=== PATIENT | female | born 1955 | race African-American/Black ===

== ENCOUNTER 2018-08-28 18:10 | Inpatient (IN) | payer MEDICARE, MEDICAID ==
[~2018-08-28] VITALS: Ht 170.2 cm; Wt 92.8 kg
[~2018-08-28 18:10] MED LIST: CARV25TA47 PO; CLON0.1T PO; FURO80TA3 PO; HYDR-4135 PO; IBUP-2029 PO; ISOS30TA6 PO; LORA-250 PO; PARO30TA62 PO
[2018-08-28 18:24] VITALS: BP 132/80
[2018-08-28 20:00] VITALS: BP 135/67
[2018-08-28] MEDS ORDERED: IPRATROPIUM/ALBUTEROL 0.5-3(2.5)MG/3ML NEB HHN NR (21:14)
[2018-08-28] MEDS ORDERED: LORAZEPAM 1MG TABLET PO PRN (21:15)
[2018-08-28] MEDS: CARVEDILOL 25MG TABLET PO SCH (21:58)
[2018-08-28] MEDS: CLONIDINE 0.1MG TABLET PO SCH (21:58)
[2018-08-28] MEDS: HYDROCODONE/ACETAMINOPHEN 10/325MG TABLET PO PRN (21:59)
[2018-08-28 22:00] VITALS: BP 138/99
[2018-08-29] VITALS (7 sets, daily range): BP systolic 103–138; BP diastolic 61–73
[2018-08-29] MEDS: IPRATROPIUM/ALBUTEROL 0.5-3(2.5)MG/3ML NEB HHN SCH ×5 (00:40→20:35)
[2018-08-29] MEDS ORDERED: HEPARIN 1,000 UNITS PREMIX 1,500 ML IV ONE (08:40)
[2018-08-29] MEDS: HYDRALAZINE HCL 50MG TABLET PO SCH ×2 (09:00→21:31)
[2018-08-29] MEDS: PAROXETINE HCL 10MG TABLET PO SCH (09:00)
[2018-08-29] MEDS: FUROSEMIDE 40MG TABLET PO SCH (09:00)
[2018-08-29] MEDS: ISOSORBIDE MONONITRATE 30MG TABLET SR 24HR PO SCH (09:00)
[2018-08-29] MEDS: CARVEDILOL 25MG TABLET PO SCH ×2 (09:00→21:31)
[2018-08-29] MEDS: CLONIDINE 0.1MG TABLET PO SCH ×3 (09:00→17:00)
[2018-08-29] MEDS ORDERED: ROCURONIUM BROMIDE 10MG/ML VIAL 5ML IV ONE ×2 (09:33→10:12)
[2018-08-29] MEDS ORDERED: PROPOFOL 200MG/20ML VIAL IV ONE (09:33)
[2018-08-29] MEDS ORDERED: FENTANYL CITRATE/PF 50MCG/ML 2ML VIAL ONE (09:33)
[2018-08-29] MEDS ORDERED: NEOSTIGMINE METHYLSULFATE 1MG/ML 10 ML VIAL ONE (09:33)
[2018-08-29] MEDS ORDERED: GLYCOPYRROLATE 0.2 MG/ML 2ML VIAL ONE (09:34)
[2018-08-29] MEDS ORDERED: MIDAZOLAM HCL 2 MG/2 ML VIAL ONE (09:34)
[2018-08-29] MEDS ORDERED: LIDOCAINE HCL/PF 1% 10 MG/ML 5ML VIAL ONE (09:37)
[2018-08-29] MEDS ORDERED: CEFAZOLIN SODIUM 1000MG/VIAL ONE (09:37)
[2018-08-29] MEDS ORDERED: ONDANSETRON HCL 4MG/2ML INJ ONE (09:37)
[2018-08-29] MEDS ORDERED: EPHEDRINE SULFATE 50MG/ML VIAL ONE (09:37)
[2018-08-29] MEDS ORDERED: SUCCINYLCHOLINE CHLORIDE 200MG/10ML IV ONE (09:37)
[2018-08-29] MEDS ORDERED: PHENYLEPHRINE HCL 10 MG/ML 1ML (IV VIAL) IV ONE (09:37)
[2018-08-29] MEDS ORDERED: METOCLOPRAMIDE HCL 10MG/2ML VIAL ONE (09:37)
[2018-08-29] MEDS ORDERED: SODIUM CHLORIDE 0.9% 10ML VIAL ONE (09:37)
[2018-08-29] MEDS ORDERED: METOPROLOL TARTRATE 5MG/5ML VIAL IV ONE (09:42)
[2018-08-29] MEDS ORDERED: LIDOCAINE HCL 1% 20ML VIAL (Pyxis) INJ ONE (09:47)
[2018-08-29 11:03] LABS: INR 1.1; PROTHROMBIN TIME 11.4 sec (9.1-11.1)
[2018-08-29 11:19] LABS: BASOPHILS % 0.3 % (0.0-2.0); EOSINOPHILS % 7.5 % (0.0-5.0); HEMATOCRIT. 27.3 % (36.0-48.0); HEMOGLOBIN. 8.4 g/dL (12.0-16.0); LYMPHOCYTES % 20.4 % (20.0-50.0); MEAN CORPUSCULAR HEMOGLOBIN 26.7 pg (28.0-32.0); MEAN CORPUSCULAR VOLUME 86.5 fL (81.0-99.0); MEAN PLATELET VOLUME 9.4 fl (7.4-10.4); MONOCYTES % 12.6 % (2.0-8.0); NEUTROPHILS % 59.2 % (40.0-76.0); PLATELET 218 x1000/uL (130-400); RED BLOOD CELL COUNT 3.15 mill/uL (4.2-5.4); RED CELL DISTRIBUTION WIDTH 17.4 % (11.6-14.6)
[2018-08-29] MEDS ORDERED: HEPARIN 1000 UNITS/ML 10ML ONE ×2 (11:31→14:16)
[2018-08-29] MEDS ORDERED: HEPARIN SODIUM 1,000 UNIT/1ML VIAL IV ONE ×2 (13:04→15:01)
[2018-08-29] MEDS ORDERED: MORPHINE SULFATE 4 MG/ML CPJ (NOT FOR IM USE) IV PRN (16:00)
[2018-08-29] MEDS ORDERED: HYDROMORPHONE HCL/PF 2MG/ML CPJ IV PRN (16:00)
[2018-08-29] MEDS ORDERED: FENTANYL CITRATE/PF 50MCG/ML 2ML VIAL IV PRN (16:00)
[2018-08-29] MEDS ORDERED: ATROPINE SULFATE 1MG/10ML SYR IV PRN (16:00)
[2018-08-29] MEDS ORDERED: ONDANSETRON HCL 4MG/2ML INJ IV PRN (16:00)
[2018-08-29] MEDS ORDERED: MEPERIDINE HCL/PF 25MG/ML CPJ IV PRN (16:00)
[2018-08-29] MEDS ORDERED: FUROSEMIDE 20MG/2ML VIAL ONE ×2 (16:58→17:10)
[2018-08-30] VITALS (18 sets, daily range): BP systolic 75–140; BP diastolic 42–86
[2018-08-30] MEDS: IPRATROPIUM/ALBUTEROL 0.5-3(2.5)MG/3ML NEB HHN SCH ×5 (00:10→16:18)
[2018-08-30] MEDS: HYDROCODONE/ACETAMINOPHEN 10/325MG TABLET PO PRN ×3 (02:39→14:19)
[2018-08-30 06:40] LABS: CHLORIDE 109 mEq/L (98-107)
[2018-08-30 06:47] LABS: BASOPHILS % 0.5 % (0.0-2.0); EOSINOPHILS % 0.3 % (0.0-5.0); HEMATOCRIT. 24.4 % (36.0-48.0); HEMOGLOBIN. 7.6 g/dL (12.0-16.0); LYMPHOCYTES % 15.1 % (20.0-50.0); MEAN CORPUSCULAR HEMOGLOBIN 27.3 pg (28.0-32.0); MEAN CORPUSCULAR VOLUME 87.2 fL (81.0-99.0); MEAN PLATELET VOLUME 9.4 fl (7.4-10.4); MONOCYTES % 13.8 % (2.0-8.0); NEUTROPHILS % 70.3 % (40.0-76.0); PLATELET 187 x1000/uL (130-400); RED CELL DISTRIBUTION WIDTH 17.7 % (11.6-14.6)
[2018-08-30] MEDS: FUROSEMIDE 40MG TABLET PO SCH (07:56)
[2018-08-30] MEDS: CARVEDILOL 25MG TABLET PO SCH (07:57)
[2018-08-30] MEDS: PAROXETINE HCL 10MG TABLET PO SCH (07:58)
[2018-08-30] MEDS: HYDRALAZINE HCL 50MG TABLET PO SCH (09:00)
[2018-08-30] MEDS: CLONIDINE 0.1MG TABLET PO SCH ×3 (09:00→17:35)
[2018-08-30] MEDS ORDERED: DEXTROSE 50% WATER 50ML SYRINGE IV PRN (09:15)
[2018-08-30] MEDS: ISOSORBIDE MONONITRATE 30MG TABLET SR 24HR PO SCH (09:59)
[2018-08-30] MEDS: BLOOD SUGAR DIAGNOSTIC STRIP TEST SCH ×2 (11:50→17:32)
[2018-08-30] MEDS: INSULIN LISPRO 100 UNITS/ML SUBCUT SCH ×2 (13:18→17:35)
[2018-08-30] MEDS ORDERED: APIXABAN 5 MG TABLET PO STA (15:08)
[2018-08-30] MEDS ORDERED: APIXABAN 5 MG TABLET PO NR (15:30)
== END 2018-08-30 18:30 | disposition home or self-care (01) | DRG 273 ==
LOC: 3WST 18:10
PROVIDERS: ADMIT Internal Medicine Clinical Cardiac Electrophysiology; ATTEND Internal Medicine Clinical Cardiac Electrophysiology
PROC: 02583ZZ Destruction of Conduction Mechanism, Percutaneous Approach (ICD-10-PCS; principal; 2018-08-29)
PROC: 4A023FZ Measurement of Cardiac Rhythm, Percutaneous Approach (ICD-10-PCS; 2018-08-29)
PROC: 4A0234Z Measurement of Cardiac Electrical Activity, Percutaneous Approach (ICD-10-PCS; 2018-08-29)
PROC: 02573ZZ Destruction of Left Atrium, Percutaneous Approach (ICD-10-PCS; 2018-08-29)
PROC: 4A023N8 Measurement of Cardiac Sampling and Pressure, Bilateral, Percutaneous Approach (ICD-10-PCS; 2018-08-29)
PROC: B2111ZZ Fluoroscopy of Multiple Coronary Arteries using Low Osmolar Contrast (ICD-10-PCS; 2018-08-29)
PROC: B2161ZZ Fluoroscopy of Right and Left Heart using Low Osmolar Contrast (ICD-10-PCS; 2018-08-29)
DX: I48.1 Persistent atrial fibrillation (principal); I50.23 Acute on chronic systolic (congestive) heart failure; I50.22 Chronic systolic (congestive) heart failure; J44.1 Chronic obstructive pulmonary disease with (acute) exacerbation; I11.0 Hypertensive heart disease with heart failure; E11.9 Type 2 diabetes mellitus without complications; E78.5 Hyperlipidemia, unspecified; I48.4 Atypical atrial flutter; I48.0 Paroxysmal atrial fibrillation; Z88.8 Allergy status to other drugs, medicaments and biological substances; Z79.4 Long term (current) use of insulin; D64.9 Anemia, unspecified; E66.9 Obesity, unspecified
CPT/HCPCS: 36415; 36620; 76857; 80048; 82962; 85347; 86850; 86900; 93005; 93613; 93621; 93655; 93656; 93657; 93662; C1726; C1731; C1732; C1759; C1760; C1893; J0330; J0690; J1644; J1815; J1940; J2250; J2370; J2405; J2704; J2710; J2765; J3010; J3490; J7620; A4315